=== PATIENT | female | born 1965 | race Caucasian/White ===

== ENCOUNTER → 2017-03-26 | Day surgery (SDC) | payer OTHER ==
[~2017-03-26] VITALS: Ht 172.7 cm; Wt 131.5 kg
[2017-03-26] VITALS (12 sets, daily range): BP systolic 124–194; BP diastolic 58–141; PULSE 65–82; RESP 13–20; O2SAT 91–95
[~2017-03-26] MED LIST: ASPI-973 PO; Bupivacaine 0.5% 50 mL Inj INFILTRATE ONE; CHOL10008 PO; CeFAZolin Inj 3 GM in Dextrose 5% Minibag Plus 50 ML IV ONE; CeFAZolin Inj 3 Gm/ D5W 50 mL Bag IV ONE; DICL100G26 TOPICAL; Dexamethasone 4 mg/mL Inj IVPUSH PRN; EPHEDrine Sulfate 50 mg/mL Inj IVPUSH PRN; GLPZ5T PO; GLUC-120 PO; Glycopyrrolate 0.2 MG/ML 1mL Inj ONE; HYDROcodone-APAP 5-325 mg Tablet PO PRN; Heparin 5,000 Unit/mL Inj ONE; Heparin 5,000 Unit/mL Inj SUBQ ONE; IBUP200C PO; Ketamine 10 mg/mL 20 mL Inj ONE; LISI30TA5 PO; Lactated Ringer's 1,000 ML IV ONE; Lactated Ringer's 1,000 ML IV SCH; Lactated Ringer's 500 ML IV PRN; METF-496 PO; MULT-1018 PO; MetoCLOpramide 5 mg/mL 2 mL Inj IVPUSH PRN; Neostigmine 1 mg/mL 10 mL Inj ONE; OMEG-38 PO; OMEP20CA11 PO; Ondansetron 2 mg/mL 2 mL Inj IVPUSH PRN; Ondansetron 2 mg/mL 2 mL Inj ONE; POTA10TA12 PO; Phenylephrine 10,000 mCg/mL Inj IVPUSH PRN; Propofol 10,000 mCg/mL 20 mL Inj ONE; Rocuronium 10 mg/mL 5 mL Inj ONE; fentaNYL-PF 50 mCg/mL 2 mL Inj IVPUSH PRN; fentaNYL-PF 50 mCg/mL 2 mL Inj ONE
--- NOTE | 2017-03-26 07:51 | PCM.HPANE ---
Patient Data Surgeon Admitting Provider: Attending Provider:Travon Beatty MD Primary Care Physician:Craig Bello MD Other Provider:[facility] Reason for Visit Biosymptomatic Gallstones Ht/WT & BMI Height (Feet): 5 Height (Inches): 8 Weight (Kilograms): 131.5 Body Mass Index 43.00 Allergies Coded Allergies: codeine (Verified Allergy, Unknown, nausea, 03/19/17) Past Anesthesia History Anesthesia History: Denies:: Abnormal Airway, Anesthesia Reactions, Difficult Intubation, Fam Anesthesia Reaction, Fam Malignant Hypertherm, Malignant Hyperthermia Diabetes History Hx Diabetes?: Yes Type of Diabetes: Type II Glycemic Control: Oral Medication Current Bedside Blood Glucose: 112 MRSA MRSA: No Medications Blood Thinner: Aspirin Hypertension Medication: Yes Home Meds Incl Beta Sada: No Reported Medications Omeprazole 20 Mg Capsule.dr20 Mg PO DAILY Ref 0 03/19/17 Glipizide 5 Mg Tablet5 Mg PO DAILY 30 Days 03/19/17 Cholecalciferol (Vitamin D3) (Vitamin D3)1,000 Unit Tab.chew1,000 Unit PO DAILY 03/19/17 Potassium Chloride ER 10 Meq Ucrrwm68 Meq PO PRN Ref 0 TAKE WITH FOOD 03/19/17 Multivitamin (Multi Vitamin Daily)1 Each Tablet1 Each PO DAILY 30 Days Ref 0 03/19/17 Metformin ER 1,000 Mg Tablet1,000 Mg PO BID Ref 0 03/19/17 Lisinopril 30 Mg Aglayk39 Mg PO DAILY 30 Days Ref 0 03/19/17 Ibuprofen 200 Mg Kwckfxx201 Mg PO QID PRN For Pain Ref 0 03/19/17 Gluc 2Kcl/Chondr/Adarsh Hy/Hy AC (Glucosamine & Chondroitin Cap)1 Each Capsule1 Each PO DAILY 03/19/17 Starbuck-3/Dha/Epa/Fish Oil (Fish Oil 1,000 mg Softgel)1 Each Capsule1 Each PO DAILY 03/19/17 Aspirin 81 Mg Cdtlzy39 Mg PO DAILY Ref 0 03/19/17 Discontinued Reported Medications Diclofenac Gel 100 Gm Tube1 Applic TOPICAL QID PRN For Pain #1 TUBE 03/19/17 Omeprazole 20 Mg Capsule.dr20 Mg PO DAILY Ref 0 06/27/16 Cholecalciferol (Vitamin D3) (Vitamin D3)1,000 Unit Tab.chew1,000 Unit PO 06/27/16 Potassium Chloride ER 10 Meq Fyqytt45 Meq PO DAILY Ref 0 TAKE WITH FOOD 06/27/16 Oxybutynin Chloride 5 Mg Tablet5 Mg PO BID Ref 0 06/27/16 Multivitamin (Multi Vitamin Daily)1 Each Tablet1 Each PO DAILY 30 Days Ref 0 06/27/16 Metformin 500 Mg Epuyzv977 Mg PO BID Ref 0 06/27/16 Lisinopril 30 Mg Vsbsze69 Mg PO DAILY 30 Days Ref 0 06/27/16 Ibuprofen 800 Mg Dholot430 Mg PO Q6H PRN For Pain Ref 0 06/27/16 Glucosamine/D3/Boswellia Candice (Glucosamine Daily Complex Tab)1,500 Mg-400 Unit- 100 Mg Tablet1 Each PO DAILY 06/27/16 Starbuck-3/Dha/Epa/Fish Oil (Fish Oil 1,000 mg Softgel)1 Each Capsule1 Each PO DAILY 06/27/16 Aspirin 81 Mg Puiktn55 Mg PO DAILY Ref 0 06/27/16 History History of ENT Problems?: No HEENT History: Denies:: Abnormal Airway Cataracts Difficult Intubation Dysphagia Glaucoma Hearing Problem Sinus Problem Denture Type: Full- Upper Teeth Condition: Within Normal Limits Hx of Heart Problems?: Yes Cardiovascular History: Positive for:: Hypertension Denies:: AICD Cardiac Surgery Chest Pain Congestive Heart Failure Edema Heart Murmur Irregular Heartbeat Pacemaker Hx of Respiratory Problem?: No Respiratory History: Denies:: Asthma COPD Emphysema Oxygen Administration Pneumonia Tuberculosis Use of C-PAP Machine Hx Neurologic Problems?: No Neurological History: Denies:: CVA Dizziness Headaches Multiple Sclerosis Parkinson's Disease Seizures Hx of GI Problems?: Yes Gastrointestinal History: Positive for:: Gall Bladder Disease Hx of Problems?: Yes Genitourinary History: Denies:: Kidney Stones Urinary Tract Infection Female Hx: Denies:: Currently (hx post menopause) Problems with Breasts? Skin History: Denies:: History Skin Disorders? Pressure Ulcers Hx Musculoskeletal Problems?: Yes Musculoskeletal History: Positive for:: Musculoskeletal Trauma (dequervains syndrome) Denies:: Back Injury Fibromyalgia Joint Replacement Osteoarthritis Systemic Lupus Hx of Psycho/Social Problems?: No Psycho Social History: Denies:: Anxiety Hx Depression Hx Surgeries?: Yes (knee acl, ) Hx Any Other Health Problems?: Yes Other History: Positive for:: Cancer (scc ) Denies:: Thyroid Disease History Blood Transfusions: Positive for:: Accept Blood Products? Denies:: Blood Transfusions Hx Diabetes: YesBedside Blood Glucose: 112 Hx Alcohol Use: NoHx Substance Use: No Smoking Status: Never Smoker Have You Smoked inLast 12 mo: No (quit 5 years ago) Stop/Bang S-Snoring: Do You Snore Loudly: No T-Tired: feel tired, fatigued: No O-Obsered: Observed not breath: No P-Blood Pressure: treated: Yes B- Body Mass Index > 35 kg/m2: Yes A- Age over 50: Yes N- Neck Large Circumference: Yes G- Gender Male: No STACI Total Score: 4 STACI Risk Assessment: High Risk, =/>3 Yes STACI Category 4 OutPt Procedure: Yes Risk Assessment Category Category 1A: Patient has history of documented sleep apnea, and HAS NOT received any narcotic, sedative or anesthesia administration during this stay. Category 1B: Patient has history of documented sleep apnea, and HAS received any narcotic , sedative or anesthesia administration during this stay Category 2: Patient has SUSPECTED Obstructive Sleep Apnea, and HAS received any narcotic , sedative or anesthesia administration during this stay. Category 3: Patient has SUSPECTED Obstructive Sleep Apnea and HAS NOT received narcotic, sedative or anesthesia administration during this stay. Category 4: Outpatient in Procedural Areas with known sleep apnea or who screen positive for High Risk via the STOP/BANG questionnaire. Exam Exam Vital Signs Vital Signs Date Time Temp Pulse Resp B/P Pulse Ox O2 Delivery O2 Flow Rate FiO2 03/26/17 06:21 36.2 72 18 169/88 94 Room Air General Appearance: Alert, Oriented X3, Cooperative, No Acute Distress HEENT/AIRWAY: MP 2 Lungs: Clear to Auscultation, Normal Air Movement Heart: Exam Unremarkable, Regular Rate/Rhythm, No Murmurs/Rubs/Gallops Meds/Labs/Diagnostics Admission Meds Current Medications Lactated Ringer's (Lr) 1,000 ml @ 120 mls/hr Q8H20M ONCE IV Last administered on 03/26/17 06:05; Start 03/26/17 at 05:00; Stop 03/26/17 at 13:19 Gabapentin (Neurontin) 600 mg PREOP ONCE PO Last administered on 03/26/17 06: 17; Start 03/26/17 at 06:00; Stop 03/26/17 at 06:02; Status DC Celecoxib (CeleBREX) 200 mg PREOP ONCE PO Last administered on 03/26/17 06:17 ; Start 03/26/17 at 06:00; Stop 03/26/17 at 06:02; Status DC Scopolamine (Transderm-Scop Patch) 1.5 mg ONCE ONCE TOPICAL Last administered on 03/26/17 06:17; Start 03/26/17 at 05:00; Stop 03/26/17 at 05:01; Status DC Acetaminophen (Tylenol) 975 mg PREOP ONCE PO Last administered on 03/26/17 06: ; Start 03/26/17 at 06:00; Stop 03/26/17 at 06:02; Status DC Bedside Blood Glucose: 112 Plan Impression Patient chart reviewed, patient interviewed and anesthestic plan with risks, benefits, and alternatives discussed, and informed consent obtained. ASA Physical Status: ASA3 Severe Disease (BMI 44) Anesthetic Plan: GA Bene/Risks/Altern/Consents: Yes HP Complete Prior to Induction: Yes Alex Macedo MD Mar 26, 2017 07:51
--- NOTE | 2017-03-26 10:00 | OP ---
[address] [address] OPERATIVE REPORT PATIENT: NEIDA RODRIGUEZ : 1965 MR#: [id number] ADMIT: 03/26/2017 JOB ID: [id number] DATE OF SURGERY: 03/26/2017 PREOPERATIVE DIAGNOSIS(ES): Calculous cholecystitis. POSTOPERATIVE DIAGNOSIS(ES): Calculous cholecystitis. PROCEDURE: Laparoscopic cholecystectomy. SURGEON: Travon Beatty MD. MOLDER OFFBEARER: Maurice Mitchell PA-C. INDICATIONS: A 51-year-old female, who has epigastric and right upper quadrant pain consistent with gallstones, which were demonstrated by her ultrasound. She had normal liver function tests and no clinical or imaging evidence of choledocholithiasis. There is no known history of pancreatitis. She is morbidly obese with a BMI of 44 but after discussing options with the patient, has elected to proceed with a laparoscopic, possible open cholecystectomy and possible cholangiograms. FINDINGS: She had chronic calculous cholecystitis. I attempted cholangiograms but I could not advance the catheter beyond the entrance into the cystic duct, as the catheter came up against a valve. The triangle of Calot was completely dissected free visualizing only of the cystic duct and the cyst cystic artery traversing to the gallbladder. DESCRIPTION OF PROCEDURE: At the beginning and end of the operation, SCOAP checklist was completed. A general endotracheal anesthesia was induced by Dr. Alex Macedo. Using ChloraPrep, she was prepped and draped in the usual fashion. She received preoperative antibiotics. She had on pneumatic hose and received subcutaneous heparin. She received local anesthesia with 0.5% bupivacaine at all trocar sites. An infraumbilical incision was made. The abdominal cavity was entered. A cannula inserted. The abdomen was insufflated with CO2 and she was placed in the reverse Trendelenburg position rotated to the left. Under direct visualization, additional 5 mm ports were placed, one in the upper midline and two in the right upper quadrant. Omental adhesions were taken down with cautery. The fundus of the gallbladder was elevated. The infundibulum was retracted inferiorly and laterally and using a 30-degree scope for visualization, the cystic duct was exposed, the plate was released and dissection about 1[address] anteriorly and posteriorly on the gallbladder was completed. I was then able to clearly identify the cystic duct and the only other structure going to the gallbladder was the cystic artery. A clip was placed at the confluence of the gallbladder and the cystic duct. A small incision was made in the cystic duct. I attempted to pass a cholangiocatheter but I could not get it adequately seated in the cystic duct as I came up against a valve. Three clips were then placed proximally on the cystic duct, which was sharply divided. The cystic artery was divided between two clips proximally and one distally. The gallbladder was dissected away from the liver using cautery and placed into a specimen bag. The subhepatic space and right subphrenic spaces were irrigated with saline and aspirated. The gallbladder bed was inspected. There was no evidence of bleeding or bile leak, and clips were secure. The specimen bag was removed through the umbilical port. Trocars were removed without evidence of bleeding. The umbilical fascial incision was closed with running 0 Vicryl. Skin incisions were closed with subcuticular 4-0 Vicryl. Steri-Strips and Band-Aids were applied. Estimated blood loss less than 10 cc. No apparent complications. The final sponge, needle and instrument counts were announced as correct, and the patient was returned to the recovery room in a stable condition. Critical assistance provided by Zeus Mitchell PA-C.
--- NOTE | 2017-03-26 10:53 | PCM.ANEP1 ---
Post Anesthesia PACU Phase 1 Assessment Vital Signs Vital Signs Date Time Temp Pulse Resp B/P Pulse Ox O2 Delivery O2 Flow Rate FiO2 03/26/17 10:50 81 14 143/59 94 Nasal Cannula 2 03/26/17 10:37 36.6 75 17 140/59 95 Nasal Cannula 2 100 03/26/17 10:25 69 14 138/60 95 Simple Mask 8 100 03/26/17 10:20 13 131/60 95 Simple Mask 8 100 03/26/17 10:15 67 15 124/58 93 Simple Mask 8 100 03/26/17 10:05 65 15 194/141 91 Simple Mask 8 100 03/26/17 10:00 65 18 178/99 94 Simple Mask 8 100 03/26/17 09:50 67 16 147/84 95 Simple Mask 8 100 03/26/17 09:45 78 18 156/74 95 Simple Mask 03/26/17 09:40 36.0 82 20 151/71 94 Simple Mask 03/26/17 06:21 36.2 72 18 169/88 94 Room Air Anesthetic Administered: GA Level of Alertness: Sleepy, easy to arouse ELLISON's with Equal Strength: Yes Pain: No Nausea or Vomiting: No CV Function & Hydration Stable: Yes Airway Device: Oralpharangeal Airway Oxygen Delivery: Simple Mask Lungs: Clear to Auscultation, Normal Air Movement Dermatome Level: Full Sensation PACU Phase 2 Assessment Complications: No Follow up Care: No Patient Instructions Provided: N/A Alex Macedo MD Mar 26, 2017 10:53
--- NOTE | 2017-03-28 13:44 | PATH ---
SURGICAL PATHOLOGY Attending Physician:Johan Ashford CASE STATUS: Signed Out PATIENT NAME: NEIDA RODRIGUEZ PID: [id number] : 1965 DATE COLLECTED:03/26/2017 23:26 SPECIMEN: Gallbladder CLINICAL HISTORY: GALLSTONES, EXCISION 1). GALLBLADDER FINAL DIAGNOSIS: 1.GALLBLADDER, CHOLECYSTECTOMY: CHRONIC CHOLECYSTITIS WITH CHOLELITHIASIS. ICD10 K80.80 GROSS DESCRIPTION: The specimen is received in one formalin filled container labeled with the patient's name, sublabeled "gallbladder" and consists of a slightly opened 8.0 x 4.0 x 2.0 CM gallbladder. The serosa is smooth. The wall is 0.2-0.4 CM in thickness. The mucosa is a dark green in color. The lumen contains a dark green mucoid material and one dark green black calculus which measures 1.6 CM in greatest dimension. 5 appeals representative sections are submitted in one cassette. 03/27/2017DC MICRO DESCRIPTION: See diagnosis. ICD-9 CODES: CPT CODES: 1: 20795 Electronically Signed Out Bar Escalante MD Formerly [facility] [address], [place] [address] Technical component performed at [facility], [address] [place] [address] Ave[address], [place], [address]
== END | disposition home or self-care (01) ==
LOC: SAS 05:54
PROVIDERS: ATTEND Surgery
PROC: 0FT44ZZ Resection of Gallbladder, Percutaneous Endoscopic Approach (ICD-10-PCS; principal; 2017-03-26 08:00)
DX: K80.10 Calculus of gallbladder with chronic cholecystitis without obstruction (principal); K21.9 Gastro-esophageal reflux disease without esophagitis; I10 Essential (primary) hypertension; E66.01 Morbid (severe) obesity due to excess calories; Z68.41 Body mass index [BMI] 40.0-44.9, adult; E11.9 Type 2 diabetes mellitus without complications; Z79.84 Long term (current) use of oral hypoglycemic drugs; Z87.891 Personal history of nicotine dependence
CPT/HCPCS: 47562; J0690; J1644; J2250; J2405; J2704; J2710; J3010; J7120